=== PATIENT | female | born 1950 | race Caucasian/White ===

== ENCOUNTER → 2017-01-13 | Outpatient (CLI) | payer OTHER ==
[~2017-01-13] VITALS: Ht 162.6 cm; Wt 58.2 kg
[~2017-01-13] MED LIST: CHLORHEXIDINE GLUCONATE 2 % 1 PACK (2 CLOTHS) TOPICAL PRN; INSULIN HUMAN REGULAR 1,000 UNITS/10 ML VIAL SQ PRN; LACTATED RINGER'S 1000 ML IV PRN; METOPROLOL TARTRATE 25 MG TAB PO PRN; MOTR200T PO; OXYC1SOL5 PO; POVIDONE IODINE 5% (ANTISEPSIS KIT) 4 APPLICATIONS EACH NARE PRN; PROPOFOL 200 MG/20 ML AMP IV ONE; SODIUM CHLORID 0.9% 500 ML IV PRN
[2017-01-13 11:07] VITALS: BP 131/84; PULSE 68; RESP 16; TEMP 97.7; O2SAT 98
--- NOTE | 2017-01-13 11:27 | PD.HP.UP ---
H&P Update Note The Pre-Admit History and Physical Examination regarding the above named patient was reviewed (including, but not limited to, vital signs, heart, lungs, co-morbid conditions), and upon re-examination it is noted that: the patient's condition has not significantly changed since the last examination. Callum Fletcher MD Jan 13, 2017 11:27
[2017-01-13 12:33] VITALS: BP 115/80; PULSE 65; RESP 16; O2SAT 98
--- NOTE | 2017-01-16 15:39 | MR ---
cc: MEGA NOBLE M.D. DATE: 01/13/2017 PREOPERATIVE DIAGNOSES 1. Rectal bleeding. 2. History of uterine cancer. 3. Colon cancer screening. PROCEDURE Colonoscopy to cecum. POSTOPERATIVE DIAGNOSES 1. Normal cecum and ileocecal valve. 2. Sigmoid tortuosity. 3. Rare diverticulosis. 4. Grade 2 internal and external hemorrhoids. SURGEON Dr. Noble PROCEDURE The patient was placed in the left lateral decubitus position. After adequate anesthesia sedation, rectal exam confirmed the emptiness of the rectal vault. Olympus colonoscope was introduced into rectum and advanced easily under direct vision through the proximal colon reducing some of the sigmoid looping putting some abdominal pressure to get the scope around toward the cecum. The ileocecal valve was normal. There were no vascular abnormalities noted in the cecum. Colonoscope was then gradually withdrawn visualizing mucosal surface throughout the distal colon, no inflammatory changes were seen. A few diverticulum were noted in the rectosigmoid, no evidence of any mucosal polyps, no luminal narrowing. The distal rectum was pretty unremarkable. Internal hemorrhoids were irritated but did not prolapse significantly. The patient tolerated the procedure quite well and was brought to the recovery room in stable condition. MD SANDI Connor/JOSE ANGEL /10:21 PM /3:23 PM
== END ==
LOC: HEND 10:14
PROVIDERS: ATTEND Colon & Rectal Surgery
DX: K57.30 Diverticulosis of large intestine without perforation or abscess without bleeding (principal); K64.1 Second degree hemorrhoids; K64.4 Residual hemorrhoidal skin tags; K62.5 Hemorrhage of anus and rectum; Z85.42 Personal history of malignant neoplasm of other parts of uterus